=== PATIENT | male | born 1960 | race African-American/Black ===

== ENCOUNTER 2020-09-26 11:15 | Inpatient (IN) | payer OTHER ==
[~2020-09-26 11:15] MED LIST: methaDONE HCL 40 MG DISPERSABLE TABLET PO SCH
[2020-09-26 12:44] VITALS: BMI 21.4
[2020-09-26] MEDS ORDERED: BISMUTH SUBSALICYLATE 262 MG/15 ML BTL PO PRN (12:44)
[2020-09-26] MEDS ORDERED: ACETAMINOPHEN 325 MG TABLET (FP) PO PRN ×2 (12:44)
[2020-09-26] MEDS ORDERED: ONDANSETRON *ODT* 4 MG TABLET SL PRN (12:44)
[2020-09-26] MEDS ORDERED: IBUPROFEN 400 MG TABLET (FP) PO PRN (12:44)
[2020-09-26] MEDS ORDERED: MAGNESIUM HYDROX 2400MG/30ML ORAL SUSPENSION 30 ML CUP PO PRN (12:44)
[2020-09-26] MEDS ORDERED: MAG HYDROX/AL HYDROX/SIMETH 30 ML UNIT-DOSE CUP PO PRN (12:44)
[2020-09-26] MEDS ORDERED: MAGNESIUM CITRATE 300 ML BOTTLE PO PRN (12:44)
[2020-09-26] MEDS ORDERED: NICOTINE 10 MG CARTRIDGE (INHALER) IH PRN (12:44)
[2020-09-26] MEDS ORDERED: NICOTINE POLACRILEX 2 MG GUM BUC PRN (12:44)
[2020-09-26] MEDS ORDERED: diazePAM 5 MG TABLET PO PRN (12:44)
[2020-09-26] MEDS ORDERED: MENTHOL/PHENOL 1 EACH UD MM PRN (12:44)
[2020-09-26] MEDS ORDERED: methaDONE HCL 40 MG DISPERSABLE TABLET PO ONE (15:24)
[2020-09-26] MEDS: diazePAM 5 MG TABLET PO SCH (15:42)
[2020-09-26] MEDS: PRENATAL VITAMINS W/ FOLIC ACID TABLET (FP) PO SCH (15:43)
[2020-09-26] MEDS: hydrOXYzine PAMOATE 25 MG CAPSULE (FP) PO SCH ×3 (15:43→22:30)
[2020-09-26 15:45] LABS: HEMATOCRIT 29.4 % (35.4-49); HEMOGLOBIN 9.8 GM/dL (11.7-16.9); MCH 29.3 pg (25.7-33.7); MCHC 33.3 g/dl (32.0-35.9); MEAN PLT VOLUME 8.8 fl (7.5-11.1); PLATELET COUNT 149 10^3/uL (134-434); RBC 3.34 M/mm3 (4.00-5.60); RDW 16.7 % (11.9-15.9); WHITE BLOOD COUNT 3.8 K/mm3 (4.0-10.0)
[2020-09-26 15:52] LABS: ALBUMIN 2.5 g/dl (3.4-5.0); BLOOD UREA NITROGEN 27.9 mg/dL (7-18); CALCIUM 8.2 mg/dL (8.5-10.1)
[2020-09-26 15:55] LABS: CREATININE 1.3 mg/dL (0.55-1.3)
[2020-09-26 15:57] LABS: BILIRUBIN,TOTAL 0.5 mg/dL (0.2-1); TOT PROT 9.5 g/dl (6.4-8.2)
[2020-09-26 17:56] LABS: HIV INTERPRETATION PRESUMPTIVE POSITIVE (NEGATIVE)
[2020-09-26] MEDS: diazePAM 5 MG TABLET PO ONE ×2 (18:22→22:31)
[2020-09-26] MEDS: THIAMINE HCL 100 MG TABLET (FP) PO SCH (22:29)
[2020-09-26] MEDS: MELATONIN 5 MG TABLETS PO SCH (22:29)
[2020-09-27] MEDS: diazePAM 5 MG TABLET PO SCH ×5 (00:21→18:58)
[2020-09-27] MEDS: methaDONE HCL 40 MG DISPERSABLE TABLET PO SCH (05:29)
[2020-09-27] MEDS: hydrOXYzine PAMOATE 25 MG CAPSULE (FP) PO SCH ×4 (05:30→18:58)
[2020-09-27] MEDS: PRENATAL VITAMINS W/ FOLIC ACID TABLET (FP) PO SCH (10:28)
[2020-09-28] MEDS: THIAMINE HCL 100 MG TABLET (FP) PO SCH ×2 (00:11→23:07)
[2020-09-28] MEDS: diazePAM 5 MG TABLET PO SCH ×4 (00:11→23:07)
[2020-09-28] MEDS: MELATONIN 5 MG TABLETS PO SCH ×2 (00:11→23:31)
[2020-09-28] MEDS: hydrOXYzine PAMOATE 25 MG CAPSULE (FP) PO SCH ×2 (00:11→06:22)
[2020-09-28] MEDS: methaDONE HCL 40 MG DISPERSABLE TABLET PO SCH (06:22)
[2020-09-28] MEDS: METHOCARBAMOL 500 MG TABLET PO PRN (10:39)
[2020-09-28] MEDS: PRENATAL VITAMINS W/ FOLIC ACID TABLET (FP) PO SCH (10:39)
[2020-09-28] MEDS: hydrOXYzine PAMOATE 25 MG CAPSULE (FP) PO PRN ×2 (10:39→13:43)
[2020-09-28] MEDS: EMTRICITABINE/TENOFOV ALAFENAM (DESCOVY) TABLET PO SCH (13:43)
[2020-09-28] MEDS: amLODIPine BESYLATE 5 MG TABLET (FP) PO SCH (13:43)
[2020-09-28] MEDS: DOLUTEGRAVIR SODIUM 50 MG TABLET (NON-FORMULARY) PO SCH (13:45)
[2020-09-29] MEDS: diazePAM 5 MG TABLET PO SCH ×2 (05:54→18:51)
[2020-09-29] MEDS: methaDONE HCL 40 MG DISPERSABLE TABLET PO SCH (05:54)
[2020-09-29] MEDS: DOLUTEGRAVIR SODIUM 50 MG TABLET (NON-FORMULARY) PO SCH (07:25)
[2020-09-29] MEDS: METHOCARBAMOL 500 MG TABLET PO PRN (10:12)
[2020-09-29] MEDS: hydrOXYzine PAMOATE 25 MG CAPSULE (FP) PO PRN (10:13)
[2020-09-29] MEDS: amLODIPine BESYLATE 5 MG TABLET (FP) PO SCH (10:18)
[2020-09-29] MEDS: EMTRICITABINE/TENOFOV ALAFENAM (DESCOVY) TABLET PO SCH (10:18)
[2020-09-29] MEDS: PRENATAL VITAMINS W/ FOLIC ACID TABLET (FP) PO SCH (10:18)
[2020-09-29] MEDS: THIAMINE HCL 100 MG TABLET (FP) PO SCH (22:44)
[2020-09-29] MEDS: MELATONIN 5 MG TABLETS PO SCH (22:45)
[2020-09-30] MEDS: diazePAM 5 MG TABLET PO ONE (05:37)
[2020-09-30] MEDS: methaDONE HCL 40 MG DISPERSABLE TABLET PO SCH (05:37)
[2020-09-30] MEDS: DOLUTEGRAVIR SODIUM 50 MG TABLET (NON-FORMULARY) PO SCH (07:36)
[2020-09-30 08:52] VITALS: TEMP 97.1
[2020-09-30 10:00] VITALS: BP 134/72; PULSE 75
[2020-09-30] MEDS: hydrOXYzine PAMOATE 25 MG CAPSULE (FP) PO PRN (10:18)
[2020-09-30] MEDS: PRENATAL VITAMINS W/ FOLIC ACID TABLET (FP) PO SCH (10:18)
[2020-09-30] MEDS: EMTRICITABINE/TENOFOV ALAFENAM (DESCOVY) TABLET PO SCH (10:18)
[2020-09-30] MEDS: amLODIPine BESYLATE 5 MG TABLET (FP) PO SCH (10:18)
== END 2020-09-30 12:00 | disposition other institution (70) | DRG 773 ==
LOC: YASAS 11:15 → Y3N 14:28
PROVIDERS: ADMIT Allergy & Immunology; ATTEND Allergy & Immunology
PROC: HZ2ZZZZ Detoxification Services for Substance Abuse Treatment (ICD-10-PCS; principal; 2020-09-26)
DX: F10.230 Alcohol dependence with withdrawal, uncomplicated (principal); F11.20 Opioid dependence, uncomplicated; F14.20 Cocaine dependence, uncomplicated; F17.210 Nicotine dependence, cigarettes, uncomplicated; I10 Essential (primary) hypertension; D64.9 Anemia, unspecified; R73.9 Hyperglycemia, unspecified; E83.51 Hypocalcemia; R94.5 Abnormal results of liver function studies; E46 Unspecified protein-calorie malnutrition; Z68.21 Body mass index [BMI] 21.0-21.9, adult; Z21 Asymptomatic human immunodeficiency virus [HIV] infection status; R63.4 Abnormal weight loss; Z56.0 Unemployment, unspecified
CPT/HCPCS: 36415; 80053; 85027; 86780; 87389; C9803; U0003; U0005

== ENCOUNTER 2020-09-30 12:02 | Inpatient (IN) | payer OTHER ==
[2020-09-30] MEDS ORDERED: MAG HYDROX/AL HYDROX/SIMETH 30 ML UNIT-DOSE CUP PO PRN (13:37)
[2020-09-30] MEDS ORDERED: MENTHOL/PHENOL 1 EACH UD MM PRN (13:37)
[2020-09-30] MEDS ORDERED: NICOTINE 10 MG CARTRIDGE (INHALER) IH PRN (13:37)
[2020-09-30] MEDS ORDERED: IBUPROFEN 400 MG TABLET (FP) PO PRN (13:37)
[2020-09-30] MEDS ORDERED: MAGNESIUM CITRATE 300 ML BOTTLE PO PRN (13:37)
[2020-09-30] MEDS ORDERED: P-EPHED 60MG/TRIPROLIDI 2.5MG TABLET PO PRN (13:37)
[2020-09-30] MEDS ORDERED: LOPERAMIDE HCL 2 MG CAPSULE PO PRN (13:37)
[2020-09-30] MEDS ORDERED: MAGNESIUM HYDROX 2400MG/30ML ORAL SUSPENSION 30 ML CUP PO PRN (13:37)
[2020-09-30] MEDS ORDERED: guaiFENesin 200 MG/10 ML 10 ML UNIT-DOSE CUPS PO PRN (13:37)
[2020-09-30] MEDS ORDERED: hydrOXYzine PAMOATE 25 MG CAPSULE (FP) PO PRN (13:43)
[2020-09-30] MEDS ORDERED: METHOCARBAMOL 500 MG TABLET PO PRN (16:00)
[2020-09-30] MEDS: THIAMINE HCL 100 MG TABLET (FP) PO SCH (21:23)
[2020-09-30] MEDS: MELATONIN 5 MG TABLETS PO SCH (21:23)
[2020-10-01] MEDS ORDERED: MASKS NR ONE (06:44)
[2020-10-01] MEDS: methaDONE HCL 40 MG DISPERSABLE TABLET PO SCH (06:45)
[2020-10-01] MEDS ORDERED: PT OWN MED DRAWER 7, Y5N ONE (08:46)
[2020-10-01] MEDS: DOLUTEGRAVIR SODIUM 50 MG TABLET (NON-FORMULARY) PO SCH (09:26)
[2020-10-01] MEDS: amLODIPine BESYLATE 5 MG TABLET (FP) PO SCH (09:26)
[2020-10-01] MEDS: EMTRICITABINE/TENOFOV ALAFENAM (DESCOVY) TABLET PO SCH (09:27)
[2020-10-01] MEDS: PRENATAL VITAMINS W/ FOLIC ACID TABLET (FP) PO SCH (09:27)
[2020-10-01 15:00] LABS: ALBUMIN 2.7 g/dl (3.4-5.0)
[2020-10-01 15:01] LABS: CALCIUM 8.7 mg/dL (8.5-10.1)
[2020-10-01 15:02] LABS: BLOOD UREA NITROGEN 23.8 mg/dL (7-18)
[2020-10-01 15:04] LABS: CREATININE 1.4 mg/dL (0.55-1.3)
[2020-10-01 15:05] LABS: BILIRUBIN,TOTAL 0.5 mg/dL (0.2-1); TOT PROT 10.2 g/dl (6.4-8.2)
[2020-10-01] MEDS: THIAMINE HCL 100 MG TABLET (FP) PO SCH (21:07)
[2020-10-01] MEDS: MELATONIN 5 MG TABLETS PO SCH (21:08)
[2020-10-02] MEDS: methaDONE HCL 40 MG DISPERSABLE TABLET PO SCH (06:07)
[2020-10-02] MEDS ORDERED: PT OWN MED DRAWER 7, Y5N ONE (07:30)
[2020-10-02] MEDS: DOLUTEGRAVIR SODIUM 50 MG TABLET (NON-FORMULARY) PO SCH (07:40)
[2020-10-02] MEDS: PRENATAL VITAMINS W/ FOLIC ACID TABLET (FP) PO SCH (09:53)
[2020-10-02] MEDS: EMTRICITABINE/TENOFOV ALAFENAM (DESCOVY) TABLET PO SCH (09:54)
[2020-10-02] MEDS: amLODIPine BESYLATE 5 MG TABLET (FP) PO SCH (09:54)
[2020-10-02] MEDS: CEPHALEXIN MONOHYDRATE 500 MG CAPSULE (UD) PO SCH ×2 (17:16→23:59)
[2020-10-02] MEDS: BACITRACIN 0.9 GM PACKET TP SCH (21:41)
[2020-10-02] MEDS: MELATONIN 5 MG TABLETS PO SCH (21:42)
[2020-10-02] MEDS: THIAMINE HCL 100 MG TABLET (FP) PO SCH (21:42)
[2020-10-02] MEDS ORDERED: BACITRACIN 15 GM TUBE TOPICAL OINTMENT TP SCH (22:00)
[2020-10-03] MEDS ORDERED: PT OWN MED DRAWER 7, Y5N ONE ×2 (04:00→08:46)
[2020-10-03] MEDS: ACETAMINOPHEN 325 MG TABLET (FP) PO PRN ×2 (06:23→12:05)
[2020-10-03] MEDS: methaDONE HCL 40 MG DISPERSABLE TABLET PO SCH (06:24)
[2020-10-03] MEDS: CEPHALEXIN MONOHYDRATE 500 MG CAPSULE (UD) PO SCH ×3 (06:24→17:04)
[2020-10-03] MEDS: DOLUTEGRAVIR SODIUM 50 MG TABLET (NON-FORMULARY) PO SCH (07:17)
[2020-10-03] MEDS: BACITRACIN 0.9 GM PACKET TP SCH ×2 (09:58→21:10)
[2020-10-03] MEDS: amLODIPine BESYLATE 5 MG TABLET (FP) PO SCH (09:58)
[2020-10-03] MEDS: EMTRICITABINE/TENOFOV ALAFENAM (DESCOVY) TABLET PO SCH (09:59)
[2020-10-03] MEDS: PRENATAL VITAMINS W/ FOLIC ACID TABLET (FP) PO SCH (09:59)
[2020-10-03] MEDS: THIAMINE HCL 100 MG TABLET (FP) PO SCH (21:09)
[2020-10-03] MEDS: MELATONIN 5 MG TABLETS PO SCH (21:09)
[2020-10-04] MEDS: CEPHALEXIN MONOHYDRATE 500 MG CAPSULE (UD) PO SCH ×3 (01:04→11:53)
[2020-10-04] MEDS: methaDONE HCL 40 MG DISPERSABLE TABLET PO SCH (06:17)
[2020-10-04] MEDS: ACETAMINOPHEN 325 MG TABLET (FP) PO PRN (06:18)
[2020-10-04 06:54] VITALS: TEMP 97.3
[2020-10-04] MEDS: DOLUTEGRAVIR SODIUM 50 MG TABLET (NON-FORMULARY) PO SCH (07:14)
[2020-10-04 09:19] VITALS: BP 121/72; PULSE 61
[2020-10-04] MEDS: BACITRACIN 0.9 GM PACKET TP SCH (09:49)
[2020-10-04] MEDS: EMTRICITABINE/TENOFOV ALAFENAM (DESCOVY) TABLET PO SCH (09:50)
[2020-10-04] MEDS: PRENATAL VITAMINS W/ FOLIC ACID TABLET (FP) PO SCH (09:50)
[2020-10-04] MEDS: amLODIPine BESYLATE 5 MG TABLET (FP) PO SCH (09:50)
== END 2020-10-04 13:39 | disposition home or self-care (01) | DRG 772 ==
LOC: YASAS 12:02 → Y3E 12:19
PROVIDERS: ADMIT Allergy & Immunology; ATTEND Allergy & Immunology
PROC: HZ42ZZZ Group Counseling for Substance Abuse Treatment, Cognitive-Behavioral (ICD-10-PCS; principal; 2020-09-30)
DX: F11.20 Opioid dependence, uncomplicated (principal); F10.20 Alcohol dependence, uncomplicated; F14.20 Cocaine dependence, uncomplicated; F17.210 Nicotine dependence, cigarettes, uncomplicated; Z21 Asymptomatic human immunodeficiency virus [HIV] infection status; L03.114 Cellulitis of left upper limb; L03.113 Cellulitis of right upper limb
CPT/HCPCS: 36415; 80053; 82607; 82728; 82746; 83036; 83540; 83550